=== PATIENT | male | born 1990 | race Caucasian/White ===

== ENCOUNTER 2021-03-03 | Emergency (ER) | payer SELFPAY ==
[2021-03-03] MEDS ORDERED: CELEBREX100 M1 PO (14:17)
== END 2021-03-03 14:20 | disposition home or self-care (01) | DRG 935 ==
PROC: 2W2KX4Z Dressing of Left Finger using Bandage (ICD-10-PCS; principal; 2021-03-03)
PROC: 2W2JX4Z Dressing of Right Finger using Bandage (ICD-10-PCS; 2021-03-03)
DX: T23.241A Burn of second degree of multiple right fingers (nail), including thumb, initial encounter (principal); T23.232A Burn of second degree of multiple left fingers (nail), not including thumb, initial encounter; F17.210 Nicotine dependence, cigarettes, uncomplicated; X08.8XXA Exposure to other specified smoke, fire and flames, initial encounter; Y93.89 Activity, other specified; Y92.89 Other specified places as the place of occurrence of the external cause; Y99.0 Civilian activity done for income or pay